=== PATIENT | female | born 1955 | race Two or more races ===

== ENCOUNTER → 2017-06-11 | Outpatient (CLI) | payer MEDICARE ==
[~2017-06-11] MED LIST: AMIT150T PO; DOXA4TAB3 PO; FURO-92 PO; LAMO200T2 PO; LISI-170 PO; LORA-446 PO; MULT-717 PO; OXYC-307 PO; OXYC5CAP2 PO; REGADENOSON 0.4 MG/5 ML SYRINGE ONE; TIZA4CAP PO; TRAM50TA2 PO
== END | disposition home or self-care (01) ==
LOC: CFH 06:42
PROVIDERS: ATTEND Internal Medicine Cardiovascular Disease
DX: R07.9 Chest pain, unspecified (principal)
CPT/HCPCS: 78452; 93017; 93306; A9502; J2785

== ENCOUNTER → 2018-08-30 | Outpatient (CLI) | payer MEDICARE ==
[~2018-08-30] MED LIST changes: -REGADENOSON 0.4 MG/5 ML SYRINGE ONE
== END | disposition home or self-care (01) ==
LOC: RAD 16:38
PROVIDERS: ATTEND Family Medicine
DX: J90 Pleural effusion, not elsewhere classified (principal); I51.7 Cardiomegaly
CPT/HCPCS: 71046

== ENCOUNTER → 2018-09-27 | Outpatient (CLI) | payer MEDICARE | END | disposition home or self-care (01) | LOC: RAD 11:06 | PROVIDERS: ATTEND Family Medicine | DX: J20.9 Acute bronchitis, unspecified (principal) | CPT/HCPCS: 71046 ==

== ENCOUNTER 2018-11-03 13:11 | Outpatient (CLI) | payer MEDICARE | END 2018-11-03 23:59 | disposition home or self-care (01) | LOC: RAD 13:11 | PROVIDERS: ATTEND Nurse Practitioner Family | DX: J20.9 Acute bronchitis, unspecified (principal) | CPT/HCPCS: 71046 ==

== ENCOUNTER 2019-05-23 16:16 | Inpatient (IN) | payer MEDICARE ==
[~2019-05-23] VITALS: Ht 175.3 cm; Wt 118.0 kg
[2019-05-23] MEDS ORDERED: DILTIAZEM 5 MG/ML, 5ML IVPush STA (16:46)
[2019-05-23] MEDS ORDERED: DILTIAZEM 125 MG in SODIUM CHLORIDE 0.9% 100 ML IV SCH (16:46)
[2019-05-23 17:07] LABS: BASOPHILS # (AUTO) 0.04 x10^3/uL (0-0.1); BASOPHILS % (AUTO) 1 % (0-1); EOSINOPHILS # (AUTO) 0.12 x10^3/uL (0-0.4); EOSINOPHILS % (AUTO) 2 % (1-7); LYMPHOCYTES # (AUTO) 2.36 x10^3/uL (1-3.4); LYMPHOCYTES % (AUTO) 33 % (22-44); MD NO; MEAN CORPUSCULAR HEMOGLOBIN 27.8 pg (27.0-34.8); MEAN CORPUSCULAR HGB CONC 32.2 g/dL (32.4-35.8); MEAN CORPUSCULAR VOLUME 86.2 fL (80-100); MEAN PLATELET VOLUME 9.1 fL (7.4-10.4); MONOCYTES # (AUTO) 0.44 x10^3/uL (0.2-0.8); MONOCYTES % (AUTO) 6 % (2-9); NEUTROPHILS # (AUTO) 4.21 x10^3/uL (1.8-6.8); NEUTROPHILS % (AUTO) 59 % (42-75); PLATELET COUNT 201 x10^3/uL (130-400); RED BLOOD COUNT 4.79 x10^6/uL (3.82-5.3); RED CELL DISTRIBUTION WIDTH 16.5 % (9.6-15.2)
[2019-05-23] MEDS ORDERED: DILTIAZEM 5 MG/ML, 10ML ONE (17:10)
[2019-05-23 17:17] LABS: ALBUMIN 3.9 g/dL (3.4-5.0); ANION GAP 7 mmol/L (5-15); CALCIUM 9.3 mg/dL (8.5-10.1); CHLORIDE 110 mmol/L (98-107)
--- NOTE | 2019-05-23 17:20 | NUR ---
Pt here for chest palpitations. Pt found to be in afib rvr. Pt reports hx and needing chemical conversion. Pt straight to room and placed on all monitors and call light in reach. Pt had large bore piv and medicated with diliaezam for irregular hr. Pt resting in bed awaiting further orders.
[2019-05-23 17:24] LABS: TROPONIN I 0.657 ng/mL (0.000-0.045)
[2019-05-23] MEDS ORDERED: HEPARIN 5,000 UNITS/ML, 1ML IV ONE (18:00)
[2019-05-23] MEDS ORDERED: PROPOFOL 10 MG/ML, 20ML ONE (18:16)
--- NOTE | 2019-05-23 19:00 | NUR ---
TASK RN: SYNCHRONIZED CARDIOVERSION @ 200 [address] SUCCESFULLY CONVERTED AFIB TO NSR. CONFIRMED WITH REPEAT 12 LEAD. NO DIFFICULTY WITH SEDATION. SS TO NORMAL (14) WITHIN 10 MINUTES. REPORT TO PRIMARY RN JHOAN
[2019-05-23] MEDS ORDERED: HEPARIN 25,000 UNITS/500ML PMX 500 ML ONE (19:16)
[2019-05-23] MEDS ORDERED: HEPARIN 5,000 UNITS/ML, 1ML ONE (19:16)
[2019-05-23] MEDS: HEPARIN 25,000 UNITS/500ML PMX 500 ML IV PRN (19:45)
--- NOTE | 2019-05-23 19:48 | NUR ---
Heparin verified with Lonny Rivera RN, STARTED VIA IV
[2019-05-23 20:55] VITALS: BP 157/89
[2019-05-23 21:24] VITALS: BP 157/89
[2019-05-23] MEDS ORDERED: DOXA8TAB63 PO (22:09)
[2019-05-23] MEDS ORDERED: FLUT1BLS12 INH (22:09)
[2019-05-23] MEDS ORDERED: OXYC-296 PO (22:09)
[2019-05-23] MEDS ORDERED: METO50TA82 PO (22:09)
[2019-05-23] MEDS ORDERED: BUSP10TA PO (22:09)
[2019-05-23] MEDS ORDERED: ALBU90AE INH (22:30)
[2019-05-23] MEDS ORDERED: ACETAMINOPHEN 325 MG TABLET PO PRN (23:00)
[2019-05-23] MEDS ORDERED: TRAZODONE 50MG TABLET PO PRN (23:00)
[2019-05-23] MEDS ORDERED: BISACODYL 10 MG SUPP PR PRN (23:00)
[2019-05-23] MEDS ORDERED: ONDANSETRON 2MG/ML, 2ML IVPush PRN (23:00)
[2019-05-23] MEDS: SALMETEROL INH SCH (23:00)
[2019-05-23] MEDS ORDERED: AMITRIPTYLINE HCL PO SCH (23:00)
[2019-05-23] MEDS ORDERED: LIDODERM 5% PATCH TD PRN (23:00)
[2019-05-23] MEDS: TIZANIDINE 4MG TABLET PO SCH (23:00)
[2019-05-23] MEDS: FLUTICASONE PROPION INH SCH (23:00)
[2019-05-23 23:25] VITALS: BP 169/97
[2019-05-23 23:32] LABS: TROPONIN I 0.778 ng/mL (0.000-0.045)
[2019-05-23] MEDS: OXYcodone/APAP 10/325MG TABLET PO SCH (23:35)
[2019-05-23] MEDS: DOXAZOSIN 2MG TABLET PO SCH (23:36)
[2019-05-23] MEDS: BUSPIRONE 10 MG TABLET PO SCH (23:37)
[2019-05-23] MEDS: LAMOTRIGINE 200 MG TABLET PO SCH (23:37)
[2019-05-23] MEDS: METOPROLOL TARTRATE 50 MG TABLET PO SCH (23:37)
[2019-05-24] MEDS: LISINOPRIL 20 MG TABLET PO SCH ×3 (00:34→21:29)
[2019-05-24 01:29] VITALS: BP 122/81
[2019-05-24 06:13] LABS: ANION GAP 4 mmol/L (5-15); CALCIUM 8.7 mg/dL (8.5-10.1); CHLORIDE 112 mmol/L (98-107)
[2019-05-24 06:18] LABS: FREE T4 (FREE THYROXINE) 0.93 ng/dL (0.76-1.46)
[2019-05-24] MEDS: OXYcodone/APAP 10/325MG TABLET PO SCH ×4 (06:21→21:30)
[2019-05-24] MEDS: HEPARIN 5,000 UNITS/ML, 1ML IV PRN ×2 (06:21→18:53)
[2019-05-24 06:30] LABS: BASOPHILS # (AUTO) 0.03 x10^3/uL (0-0.1); BASOPHILS % (AUTO) 1 % (0-1); EOSINOPHILS # (AUTO) 0.17 x10^3/uL (0-0.4); EOSINOPHILS % (AUTO) 3 % (1-7); LYMPHOCYTES # (AUTO) 2.04 x10^3/uL (1-3.4); LYMPHOCYTES % (AUTO) 38 % (22-44); MD NO; MEAN CORPUSCULAR HEMOGLOBIN 27.9 pg (27.0-34.8); MEAN CORPUSCULAR HGB CONC 32.3 g/dL (32.4-35.8); MEAN CORPUSCULAR VOLUME 86.3 fL (80-100); MEAN PLATELET VOLUME 9.2 fL (7.4-10.4); MONOCYTES # (AUTO) 0.38 x10^3/uL (0.2-0.8); MONOCYTES % (AUTO) 7 % (2-9); NEUTROPHILS % (AUTO) 52 % (42-75); PLATELET COUNT 156 x10^3/uL (130-400); RED BLOOD COUNT 4.31 x10^6/uL (3.82-5.3)
[2019-05-24 08:07] VITALS: BP 157/94
[2019-05-24] MEDS ORDERED: REGADENOSON 0.4 MG/5 ML SYRINGE ONE (08:50)
[2019-05-24] MEDS: FLUTICASONE PROPION INH SCH ×2 (09:00→21:29)
[2019-05-24] MEDS: SALMETEROL INH SCH ×2 (09:00→21:29)
[2019-05-24] MEDS: ALBUTEROL SULFATE INH SCH (09:00)
[2019-05-24] MEDS: DOXAZOSIN 2MG TABLET PO SCH ×2 (09:13→21:31)
[2019-05-24] MEDS: METOPROLOL TARTRATE 50 MG TABLET PO SCH ×2 (09:13→21:29)
[2019-05-24] MEDS: TIZANIDINE 4MG TABLET PO SCH ×3 (09:14→21:32)
[2019-05-24] MEDS: FUROSEMIDE 80 MG TABLET PO SCH (09:14)
[2019-05-24] MEDS: BUSPIRONE 10 MG TABLET PO SCH ×2 (09:14→21:31)
[2019-05-24] MEDS: MULTIVITAMINS/MINERALS TABLET PO SCH (09:14)
[2019-05-24 13:43] VITALS: BP 148/90
[2019-05-24] MEDS ORDERED: AMITRIPTYLINE 75 MG TABLET PO SCH ×3 (18:00→21:00)
[2019-05-24] MEDS: HEPARIN 25,000 UNITS/500ML PMX 500 ML IV PRN (18:53)
[2019-05-24 21:27] VITALS: BP 169/110
[2019-05-24] MEDS: LAMOTRIGINE 200 MG TABLET PO SCH (21:30)
[2019-05-25 01:58] VITALS: BP 154/93
[2019-05-25] MEDS: OXYcodone/APAP 10/325MG TABLET PO SCH ×2 (06:35→12:01)
[2019-05-25 08:42] VITALS: BP 152/87
[2019-05-25] MEDS: ALBUTEROL SULFATE INH SCH (08:48)
[2019-05-25] MEDS: SALMETEROL INH SCH (08:48)
[2019-05-25] MEDS: FLUTICASONE PROPION INH SCH (08:48)
[2019-05-25] MEDS: BUSPIRONE 10 MG TABLET PO SCH (08:50)
[2019-05-25] MEDS: DOXAZOSIN 2MG TABLET PO SCH (08:51)
[2019-05-25] MEDS: TIZANIDINE 4MG TABLET PO SCH (08:51)
[2019-05-25] MEDS: METOPROLOL TARTRATE 50 MG TABLET PO SCH (08:51)
[2019-05-25] MEDS: MULTIVITAMINS/MINERALS TABLET PO SCH (08:51)
[2019-05-25] MEDS: FUROSEMIDE 80 MG TABLET PO SCH (08:51)
[2019-05-25] MEDS: LISINOPRIL 20 MG TABLET PO SCH (08:52)
[2019-05-25] MEDS ORDERED: POTA20PA25 PO (09:33)
[2019-05-25] MEDS ORDERED: METO50TA82 PO ×3 (09:38→09:39)
[2019-05-25] MEDS ORDERED: SIMV40TA PO (10:39)
== END 2019-05-25 12:20 | disposition home or self-care (01) | DRG 308 ==
LOC: ED 19:46 → 5SO 20:32 → DCLOUNGE 05-25 12:01
PROVIDERS: ADMIT Internal Medicine; ATTEND Internal Medicine
PROC: 5A2204Z Restoration of Cardiac Rhythm, Single (ICD-10-PCS; principal; 2019-05-23)
DX: I48.0 Paroxysmal atrial fibrillation (principal); N17.0 Acute kidney failure with tubular necrosis; D68.59 Other primary thrombophilia; F31.30 Bipolar disorder, current episode depressed, mild or moderate severity, unspecified; I20.0 Unstable angina; I11.0 Hypertensive heart disease with heart failure; I35.1 Nonrheumatic aortic (valve) insufficiency; J44.9 Chronic obstructive pulmonary disease, unspecified; M79.7 Fibromyalgia; E66.01 Morbid (severe) obesity due to excess calories; Z68.38 Body mass index [BMI] 38.0-38.9, adult; I50.9 Heart failure, unspecified; G89.29 Other chronic pain; M54.9 Dorsalgia, unspecified; Z79.82 Long term (current) use of aspirin; Z80.0 Family history of malignant neoplasm of digestive organs; Z83.3 Family history of diabetes mellitus; Z87.891 Personal history of nicotine dependence; Z90.710 Acquired absence of both cervix and uterus; Z96.651 Presence of right artificial knee joint; Z98.84 Bariatric surgery status
CPT/HCPCS: 36415; 71046; 78452; 80048; 82040; 83735; 84100; 84439; 84443; 84484; 85025; 85520; 93005; 93017; 93306; 99291; G0378; J1644; J2785; A9502; C9898

== ENCOUNTER 2019-08-15 14:00 | Emergency (ER) | payer MEDICARE ==
[~2019-08-15] VITALS: Ht 177.8 cm; Wt 116.0 kg
[~2019-08-15 14:00] MED LIST changes: +ALBU90AE INH; +BUSP10TA PO; +DOXA8TAB63 PO; +FLUT1BLS12 INH; -LAMO200T2 PO; +LAMO200T6 PO; +METO50TA82 PO; +OXYC-296 PO; +POTA20PA25 PO; +SIMV40TA PO
[2019-08-15] MEDS ORDERED: SODIUM CHLORIDE FLUSH 10ML SYR IVF ONE (14:30)
[2019-08-15] MEDS ORDERED: DOXA2TAB9 PO (14:34)
[2019-08-15] MEDS ORDERED: RISP1TAB3 PO (14:34)
[2019-08-15] MEDS ORDERED: BUSP10TA PO (14:34)
[2019-08-15] MEDS ORDERED: ADVAIR INH (14:34)
[2019-08-15] MEDS ORDERED: METO75TA PO (14:34)
[2019-08-15] MEDS ORDERED: LISI40TA PO (14:34)
[2019-08-15] MEDS ORDERED: OXYC-305 PO (14:34)
[2019-08-15] MEDS ORDERED: LAMO200T3 PO (14:34)
--- NOTE | 2019-08-15 15:00 | NUR ---
PT AMBULATES WELL BACK TO ROOM. NAD NOTED AT THIS TIME. PT REPORTS SOB X4 DAYS. HX OF CHRONIC BRONCHITIS.
[2019-08-15 15:15] LABS: BASOPHILS # (AUTO) 0.02 x10^3/uL (0-0.1); BASOPHILS % (AUTO) 0 % (0-1); EOSINOPHILS # (AUTO) 0.11 x10^3/uL (0-0.4); EOSINOPHILS % (AUTO) 2 % (1-7); LYMPHOCYTES # (AUTO) 1.36 x10^3/uL (1-3.4); LYMPHOCYTES % (AUTO) 26 % (22-44); MD NO; MEAN CORPUSCULAR HEMOGLOBIN 28.6 pg (27.0-34.8); MEAN CORPUSCULAR HGB CONC 32.9 g/dL (32.4-35.8); MEAN CORPUSCULAR VOLUME 86.8 fL (80-100); MEAN PLATELET VOLUME 9.1 fL (7.4-10.4); MONOCYTES # (AUTO) 0.36 x10^3/uL (0.2-0.8); MONOCYTES % (AUTO) 7 % (2-9); NEUTROPHILS # (AUTO) 3.43 x10^3/uL (1.8-6.8); NEUTROPHILS % (AUTO) 65 % (42-75); PLATELET COUNT 170 x10^3/uL (130-400); RED BLOOD COUNT 4.13 x10^6/uL (3.82-5.3); RED CELL DISTRIBUTION WIDTH 14.8 % (9.6-15.2)
[2019-08-15 15:23] LABS: ALBUMIN 3.7 g/dL (3.4-5.0); ANION GAP 6 mmol/L (5-15); CALCIUM 9.5 mg/dL (8.5-10.1); CHLORIDE 111 mmol/L (98-107)
--- NOTE | 2019-08-15 15:25 | NUR ---
REPORT TO ANGELI HUERTA.
[2019-08-15 15:27] LABS: ALANINE AMINOTRANSFERASE 16 U/L (12-78); ALKALINE PHOSPHATASE 82 U/L (45-117); BILIRUBIN,TOTAL 0.4 mg/dL (0.2-1.0); CREATININE 0.98 mg/dL (0.55-1.02); TOTAL PROTEIN 6.9 g/dL (6.4-8.2)
--- NOTE | 2019-08-15 16:53 | NUR ---
CALL TO CT. PER TECH, ON THEIR WAY.
--- NOTE | 2019-08-15 17:16 | NUR ---
PT BACK FROM CT. SITTING UP IN BED, MAKES PLEASANT CONVERSATION WITH STAFF. NAD NOTED AT THIS TIME. RESPIRATIONS EVEN AND UNLABORED ON RA.
[2019-08-15] MEDS ORDERED: OMNIPAQUE 350 MG/ML, 100ML BOTTLE ONE (17:21)
--- NOTE | 2019-08-15 18:10 | NUR ---
Pt sitting up in bed using cell phone. NAD noted at this time. Awaiting CT read.
--- NOTE | 2019-08-15 18:53 | NUR ---
PT AMBULATES WELL TO BATHROOM INDEPENDENTLY. BACK IN ROOM AT THIS TIME. AWAITING CHART FROM JAYY.
[2019-08-15 19:07] VITALS: BP 184/83
--- NOTE | 2019-08-15 19:08 | NUR ---
ERMD AT BEDSIDE FOR DC DISCUSSION.
== END 2019-08-15 19:22 ==
LOC: ED 15:18
DX: R06.00 Dyspnea, unspecified (principal); R05 Cough; J44.9 Chronic obstructive pulmonary disease, unspecified; I10 Essential (primary) hypertension; I48.91 Unspecified atrial fibrillation; Z90.710 Acquired absence of both cervix and uterus
CPT/HCPCS: 36415; 71275; 80053; 85025; 93005; 99285; Q9967

== ENCOUNTER 2020-02-20 08:03 | Outpatient (CLI) | payer MEDICARE ==
[~2020-02-20 08:03] MED LIST changes: +ADVAIR INH; +DOXA2TAB9 PO; +LAMO200T3 PO; +LISI40TA PO; +METO75TA PO; +OXYC-305 PO; +RISP1TAB3 PO
[2020-02-20] MEDS ORDERED: ALPRazolam 1MG TAB ONE (08:42)
[2020-02-20] MEDS ORDERED: GADOTERATE 10 MMOL/20 ML SYR ONE (09:37)
== END 2020-02-20 23:59 | disposition home or self-care (01) ==
LOC: RAD 08:03
PROVIDERS: ATTEND Family Medicine
DX: I67.82 Cerebral ischemia (principal); G93.89 Other specified disorders of brain; J34.89 Other specified disorders of nose and nasal sinuses; R26.89 Other abnormalities of gait and mobility
CPT/HCPCS: 70553; A9575

== ENCOUNTER → 2020-03-22 | Outpatient (CLI) | payer MEDICARE ==
[~2020-03-22] MED LIST changes: +ALPRazolam 1MG TAB ONE
== END | disposition home or self-care (01) ==
LOC: RAD 08:19
PROVIDERS: ATTEND Family Medicine
DX: M50.321 Other cervical disc degeneration at C4-C5 level (principal); M48.02 Spinal stenosis, cervical region; R20.2 Paresthesia of skin
CPT/HCPCS: 72141

== ENCOUNTER → 2020-08-28 | Outpatient (CLI) | payer MEDICARE ==
[~2020-08-28] MED LIST changes: -ALPRazolam 1MG TAB ONE; -LISI40TA PO; +LISI40TA9 PO; -OXYC-307 PO; +OXYC-380 PO; -RISP1TAB3 PO; +RISP1TAB90 PO
== END | disposition home or self-care (01) ==
LOC: CVU 14:49
PROVIDERS: ATTEND Physician Assistant Medical
DX: I08.8 Other rheumatic multiple valve diseases (principal); I48.91 Unspecified atrial fibrillation; I11.9 Hypertensive heart disease without heart failure
CPT/HCPCS: 93306

== ENCOUNTER → 2020-10-05 | Outpatient (CLI) | payer MEDICARE | END | disposition home or self-care (01) | LOC: RAD 10:56 | PROVIDERS: ATTEND Family Medicine | DX: S22.41XA Multiple fractures of ribs, right side, initial encounter for closed fracture (principal); X58.XXXA Exposure to other specified factors, initial encounter; Y93.89 Activity, other specified; Y92.89 Other specified places as the place of occurrence of the external cause; Y99.8 Other external cause status ==

== ENCOUNTER → 2020-10-30 | Outpatient (CLI) | payer MEDICARE ==
[~2020-10-30] MED LIST changes: +REGADENOSON 0.4 MG/5 ML SYRINGE ONE
== END | disposition home or self-care (01) ==
LOC: CFH 12:21
PROVIDERS: ATTEND Physician Assistant Medical
DX: Z01.810 Encounter for preprocedural cardiovascular examination (principal); I48.91 Unspecified atrial fibrillation
CPT/HCPCS: 78452; 93017; A9502; J2785